=== PATIENT | female | born 1960 | race American Indian/Alaskan Native ===

== ENCOUNTER 2017-08-25 08:03 | Outpatient (CLI) | payer BC ==
--- NOTE | 2017-08-28 07:54 | Nuclear Medicine Report ---
NUCLEAR MEDICINE THYROID UPTAKE MULTIPLE HISTORY: Hyperthyroidism. FINDINGS: Four scintigraphic projections of the thyroid gland demonstrate asymmetric uptake of the radiotracer between the 2 thyroid lobes. There is increased uptake throughout the right lobe. There may be a focal hot nodule near the inferior pole of the right thyroid lobe. 4 hour uptake measures 8.6%. Normal range 4-18%. 24 hour uptake measures 17.2%. Normal range 18-36%. IMPRESSION: Uptake values as described. 24 hour uptake value is slightly low. Slightly abnormal scintigraphic appearance of the thyroid gland. Possible hot nodule near the inferior pole of the right thyroid lobe.
== END 2017-08-25 08:04 | disposition home or self-care (01) ==
LOC: NM 08:03
PROVIDERS: ATTEND Specialist
DX: E05.90 Thyrotoxicosis, unspecified without thyrotoxic crisis or storm (principal)
CPT/HCPCS: 78012; A9516